=== PATIENT | male | born 1955 | race Caucasian/White ===

== ENCOUNTER 2023-05-19 17:35 | Emergency (ER) | payer OTHER, MEDICARE, SELFPAY ==
[2023-05-19] VITALS (7 sets, daily range): BP systolic 132–143; BP diastolic 73–78; PULSE 73–87; RESP 15–20; TEMP 36.4; O2SAT 97–98; BMI 35.7
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
--- NOTE | 2023-05-19 17:49 | ECG_ITS ---
The [facility] Test Date: 2023-05-19 Pat Name: MAHIN CORBETT Department: Room: - Gender: Male Clinical Research Spec: : 1955 Requested By: Umesh Bearden Order Number: [id number] Reading MD: JENNIFER RODRIGUEZ Measurements Intervals [place] Rate: 75 P: 65 CA: 164 QRS: 73 QRSD: 90 T: 46 QT: 392 QTc: 420 Interpretive Statements [address] Sin[address]/T wave changes, inferolateral ischemia can't be excluded 9130 borderline ECG Electronically Signed On 05-19-2023 23:08:19 EDT by JENNIFER RODRIGUEZ
[2023-05-19] MEDS: 0.9 % SODIUM CHLORIDE 1,000 ML 1000 ML IV (18:02)
[2023-05-19 18:10] LABS: Basophils Absolute Auto 0.1 10^3/uL (0.0-0.1); Basophils Percent Auto 0.5 % (0.2-2.0); Eosinophils Absolute Auto 0.4 10^3/uL (0.0-0.7); Eosinophils Percent Auto 3.7 % (0.9-7.0); Hematocrit 42.7 % (42.0-54.0); Hemoglobin 14.1 g/dL (14.0-18.0); Immature Granulocytes Abs Auto 0.03 10^3/uL (0.00-0.03); Immature Granulocytes Pct Auto 0.3 % (0.0-0.5); Lymphocytes Absolute Auto 3.8 10^3/uL (1.2-3.8); Lymphocytes Percent Auto 32.8 % (20.5-60.0); Mean Corpuscular Hemoglobin 29.9 pg (25.9-34.0); Mean Corpuscular Volume 90.7 fL (80.0-94.0); Mean Platelet Volume 10.1 fL (9.5-13.5); Monocytes Percent Auto 8.1 % (1.7-12.0); Neutrophils Absolute Auto 6.4 10^3/uL (1.4-6.5); Neutrophils Percent Auto 54.6 % (43.0-75.0); Platelet Count 354 10^3/uL (150-450); Red Blood Count 4.71 10^6/uL (4.70-6.10); White Blood Count 11.7 10^3/uL (4.0-11.0)
--- NOTE | 2023-05-19 18:12 | CT_ITS ---
The [address] [id number] Patient Name: MAHIN CORBETT MRN: [id number] date: 1955 Sex: M Assigned Patient Location: ER Current Patient Location: [facility] Accession/Order Number: [id number] Exam Date: 05/19/2023 18:00 Report Date: 05/19/2023 19:04 At the request of: GIRISH MENSAH Procedure: CT cervical spine wo con EXAM: CT cervical spine wo con; [id number] REASON FOR EXAM: Trauma COMPARISON: None. TECHNIQUE: Helical CT images of the cervical spine were obtained without contrast. Multiplanar reformats generated at the scanner. Dose reduction technique used: Automated exposure control and/or adjustment of the mA and/or kV according to patient size and/or use of iterative reconstruction technique. FINDINGS: Osseous: -No acute fracture or traumatic spondylolisthesis. -Moderate cervical spondylosis most notable from C5 through C7. -Severe facet arthropathy on the left from C2 through C5 with lesser facet degenerative changes throughout the remainder of the cervical spine. -Numerous corticated foci of ossification about the left C1-C2 uncovertebral joint (series 4 image 41). No significant osseous erosions. -No suspicious osseous lesion. Paraspinous soft tissues: -No acute abnormality. Visualized lung apices: -Clear. -No pneumothorax within the [id number]. CT/CT cervical spine wo con IMPRESSION: 1. No acute traumatic abnormality of the cervical spine. 2. Chronic coarse calcifications about the left C1-C2 uncovertebral joint. Differential includes sequela of osteoarthritis versus synovial osteochondromatosis Electronically authenticated by: EDISON ROMERO Date: 05/19/2023 19:04
--- NOTE | 2023-05-19 18:12 | CT_ITS ---
The [address] [address] Patient Name: MAHIN CORBETT MRN: [id number] date: 1955 Sex: M Assigned Patient Location: ER Current Patient Location: Accession/Order Number: [id number] Exam Date: 05/19/2023 18:00 Report Date: 05/19/2023 18:52 At the request of: GIRISH MENSAH Procedure: CT chest wo con EXAM: CT chest wo con; [id number] REASON FOR EXAM: Trauma TECHNIQUE: Helical CT images of the chest were obtained without contrast. Multiplanar reformats and maximum intensity projection images were generated at the scanner. Dose reduction technique used: Automated exposure control and/or adjustment of the mA and/or kV according to patient size and/or use of iterative reconstruction technique. COMPARISON: CT chest 12/31/2019 FINDINGS: Note: Compared with contrasted CT exams, noncontrast images are less sensitive for the detection of various types of soft tissue, solid organ, and vascular pathologies. Chest: Support devices: None. Visualized Thyroid: No significant nodules. Chest wall: Mild bilateral gynecomastia. Tosin/mediastinum/esophagus: No mass. Thoracic lymph nodes: No enlarged supraclavicular, mediastinal, hilar or axillary lymph nodes. Heart and vasculature: -No pericardial effusion or aortic aneurysm. -No coronary artery calcification. Visualized portions of the upper abdomen: Peripherally calcified splenules, similar. No acute abnormality demonstrated. Musculoskeletal: -Nondisplaced fracture of the anterior medial right fourth costal cartilage (series 6 image 16). Possible nondisplaced fracture of the right anterior fifth and sixth costal cartilages. -Chronic multifocal osseous discontinuity in the central left scapula (for example series 3 image 14), stable compared with 2020. Lungs/airways: -Mild multifocal cicatricial changes from a prior infectious/inflammatory process seen on the chest CT from 12/31/2019. No definite new or worsening opacification. -The central airways are patent. Pleura: No pleural effusion or pneumothorax. CT/CT chest wo con IMPRESSION: 1. Nondisplaced fracture of the right fourth costal cartilage with possible nondisplaced fractures of the right fifth and sixth costal cartilages. 2. No other potentially acute traumatic abnormality demonstrated. Electronically authenticated by: EDISON ROMERO Date: 05/19/2023 18:52
[2023-05-19 18:30] LABS: Alanine Aminotransferase 18 U/L (16-63); Albumin Globulin Ratio 0.8; Albumin Level 3.7 g/dL (3.4-5.0); Alkaline Phosphatase 77 U/L (46-116); Anion Gap 11.3; Aspartate Amino Transferase 12 U/L (15-37); BUN Creatinine Ratio 12.4; Bilirubin Total 0.3 mg/dL (0.2-1.0); Calcium 10.1 mg/dL (8.5-10.1); Carbon Dioxide 28.1 mmol/L (21.0-32.0); Chloride 100 mmol/L (98-107); Estimated GFR (African America 35 (>=60); Estimated GFR (Non-African Ame 29 (>=60); Globulin 4.8 g/dL; Glucose 99 mg/dL (74-106); Potassium 3.4 mmol/L (3.5-5.1); Sodium 136 mmol/L (136-145); Total Protein 8.5 g/dL (6.4-8.2)
[2023-05-19 18:31] LABS: Troponin I High Sensitivity 8.8 pg/mL (4.0-76.1)
[2023-05-19 19:04] LABS: INR 0.94
[2023-05-19] MEDS: HYDROCODONE/ACET 5-325 MG TABLET 2 TAB PO (19:31)
== END 2023-05-19 19:40 | disposition home or self-care (01) ==
PROVIDERS: Emergency Provider Emergency Medicine Emergency Medical Services; PCP Family Medicine
DX: S29.9XXA Unspecified injury of thorax, initial encounter (principal); V53.5XXA Driver of pick-up truck or van injured in collision with car, pick-up truck or van in traffic accident, initial encounter; Z79.899 Other long term (current) drug therapy; Z79.84 Long term (current) use of oral hypoglycemic drugs
CPT/HCPCS: 36415; 71250; 72125; 80053; 84484; 85025; 85610; 93005; 99285

== ENCOUNTER 2023-08-25 14:24 | Emergency (ER) | payer OTHER, MEDICARE, SELFPAY ==
[2023-08-25] VITALS (30 sets, daily range): BP systolic 93–133; BP diastolic 48–72; PULSE 76–88; TEMP 36.7; O2SAT 83–97; BMI 35.7
--- NOTE | 2023-08-25 14:40 | ECG_ITS ---
The [facility] Test Date: 2023-08-25 Pat Name: MAHIN CORBETT Department: Room: - Gender: Male Manager Culture: : 1955 Requested By: Umesh Bearden Order Number: [id number] Reading MD: JENNIFER RODRIGUEZ Measurements Intervals [place] Rate: 78 P: 38 IN: 156 QRS: 51 QRSD: 86 T: 270 QT: 364 QTc: 397 Interpretive Statements 1100 Sinus rhythm 1575 with frequent ventricular premature complexes in a pattern of bigeminy [address] depression 4564 Twave abnormality, possible lateral ischemia 9150 abnormal ECG Electronically Signed On 08-25-2023 18:41:47 EDT by JENNIFER RODRIGUEZ
--- NOTE | 2023-08-25 14:40 | XR_ITS ---
The [address] [address] Patient Name: MAHIN CORBETT MRN: [id number] date: 1955 Sex: M Assigned Patient Location: ER Current Patient Location: ER Accession/Order Number: [id number] Exam Date: 08/25/2023 15:19 Report Date: 08/25/2023 15:34 At the request of: AMANDA CHAVEZ Procedure: XR chest 1V EXAMINATION: XR chest 1V HISTORY: syncope COMPARISON: XR chest 12/31/2019 FINDINGS: LUNGS: Underexpanded lungs with minimal stranding within lateral right lung base and mild opacity within left lateral costophrenic angle. VASCULATURE: No increased pulmonary vasculature. PLEURA: No pneumothorax, effusion, or pleural thickening. CARDIAC: No cardiomegaly or cardiac silhouette abnormality. MEDIASTINUM: No visible mass or adenopathy. BONES: No fracture or visible bone lesion. OTHER: Negative. XR/XR chest 1V IMPRESSION: 1. Low lung volume examination with trace amount of bibasilar atelectasis, or possibly infiltrates. Electronically authenticated by: JULIO BROWN Date: 08/25/2023 15:34
[2023-08-25] MEDS: 0.9 % SODIUM CHLORIDE 500 ML IV (15:00)
[2023-08-25 15:06] LABS: Basophils Percent Auto 0.3 % (0.2-2.0); Eosinophils Absolute Auto 0.1 10^3/uL (0.0-0.7); Hematocrit 44.2 % (42.0-54.0); Hemoglobin 14.9 g/dL (14.0-18.0); Immature Granulocytes Abs Auto 0.05 10^3/uL (0.00-0.03); Immature Granulocytes Pct Auto 0.4 % (0.0-0.5); Lymphocytes Absolute Auto 2.2 10^3/uL (1.2-3.8); Lymphocytes Percent Auto 15.9 % (20.5-60.0); Mean Corpuscular HGB Conc 33.7 g/dL (29.9-35.2); Mean Corpuscular Hemoglobin 29.6 pg (25.9-34.0); Mean Corpuscular Volume 87.7 fL (80.0-94.0); Mean Platelet Volume 10.1 fL (9.5-13.5); Monocytes Absolute Auto 0.8 10^3/uL (0.3-0.8); Monocytes Percent Auto 5.6 % (1.7-12.0); Neutrophils Absolute Auto 10.6 10^3/uL (1.4-6.5); Neutrophils Percent Auto 76.8 % (43.0-75.0); Platelet Count 341 10^3/uL (150-450); Red Blood Count 5.04 10^6/uL (4.70-6.10); Red Cell Distribution Width 13.8 % (11.0-15.0); White Blood Count 13.8 10^3/uL (4.0-11.0)
[2023-08-25 15:30] LABS: Alanine Aminotransferase 20 U/L (16-63); Albumin Globulin Ratio 0.7; Albumin Level 3.4 g/dL (3.4-5.0); Alkaline Phosphatase 66 U/L (46-116); Anion Gap 14.1; Aspartate Amino Transferase 14 U/L (15-37); BUN Creatinine Ratio 10.6; Bilirubin Total 0.5 mg/dL (0.2-1.0); Calcium 9.5 mg/dL (8.5-10.1); Carbon Dioxide 25.8 mmol/L (21.0-32.0); Chloride 100 mmol/L (98-107); Estimated GFR (African America 34 (>=60); Estimated GFR (Non-African Ame 28 (>=60); Globulin 4.6 g/dL; Glucose 101 mg/dL (74-106); Potassium 3.9 mmol/L (3.5-5.1); Sodium 136 mmol/L (136-145); Troponin I High Sensitivity 8.6 pg/mL (4.0-76.1)
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
--- NOTE | 2023-08-25 16:08 | ECG_ITS ---
The [facility] Test Date: 2023-08-25 Pat Name: MAHIN CORBETT Department: Room: - Gender: Male Software Development Leader: : 1955 Requested By: Umesh Bearden Order Number: [id number] Reading MD: JENNIFER RODRIGUEZ Measurements Intervals [place] Rate: 80 P: 39 PA: 156 QRS: 53 QRSD: 80 T: 57 QT: 394 QTc: 430 Interpretive Statements 1100 Sinus rhythm 1574 with frequent ventricular premature complexes in trigeminy pattern 4068 Nonspecific Twave abnormality Electronically Signed On 08-25-2023 18:42:23 EDT by JENNIFER RODRIGUEZ
[2023-08-25] MEDS: ONDANSETRON PF 4 MG/2 ML VIAL IV (16:18)
[2023-08-25] MEDS: KETOROLAC TROMETHAMINE 30 MG/ML VIAL 15 MG IVP (16:19)
[2023-08-25 17:32] LABS: Troponin I High Sensitivity 8.1 pg/mL (4.0-76.1)
== END 2023-08-25 17:54 | disposition short-term general hospital (02) ==
PROVIDERS: Emergency Provider Emergency Medicine; PCP Family Medicine
DX: R00.8 Other abnormalities of heart beat (principal); R55 Syncope and collapse; R07.9 Chest pain, unspecified
CPT/HCPCS: 36415; 71045; 80053; 83735; 84484; 85025; 93005; 96374; 96375; 99285; J1885; J2405